=== PATIENT | male | born 1965 | race Caucasian/White ===

== ENCOUNTER 2016-12-13 10:50 | Emergency (ER) | payer OTHER ==
[2016-12-13 10:59] VITALS: TEMP 97.8; BMI 30.8
--- NOTE | 2016-12-13 11:09 | PDOC ---
History of Present Illness <AamirMann - Last Filed: 12/13/16 14:30> - General History Source: Patient, Primary Care Provider (Dr. Ervin Chaves) Exam Limitations: No Limitations <Natalia Schneider - Last Filed: 12/13/16 14:45> - General Chief Complaint: Chest Pain Stated Complaint: CHEST PAIN Time Seen by Provider: 12/13/16 11:09 - History of Present Illness Initial Comments: 12/13/16 11:26 The patient is a 51-year-old man with no past medical history of who presents with mid-sternal chest pain, pressure in character, "feels like a knot in his chest", lasting 30 seconds - 1 minute, nonpleuritic, nonradiating, intermittent , 6/10 in severity, without alleviating/ exacerbating factors, with associated palpitations and generalized weakness for the past 3 days. He has not taken any medications to help with his symptoms. He has never experienced this before. He went to his PMD's office, this morning, for further evaluation of his symptoms, for which he was advised to present to the ED. He denies fever, chills, cough, hemoptysis, diaphoresis, shortness of breath, headache. He denies jaw/ back pain lower extremity pain/swelling, calf tenderness/pain He denies recent travel, recent surgery, recent immobilization. Allergies: No Known Drug Allergies Past Surgical History: None reported Social History: Current everyday cigarette smoker (approximately 10 cigarettes/ day). No EtOH use. Former steroid use. Primary Care Physician: Dr. Jerod Chaves (Natalia Schneider) Past History - Psycho/Social/Smoking Cessation Hx Anxiety: No Suicidal Ideation: No Smoking Status: Yes Smoking History: Current every day smoker Number of Cigarettes Smoked Daily: 20 Information on smoking cessation initiated: No Hx Alcohol Use: No Drug/Substance Use Hx: No Substance Use Type: None <Mann Rutledge - Last Filed: 12/13/16 14:30> <Natalia Schneider - Last Filed: 12/13/16 14:45> - Past Medical History Allergies/Adverse Reactions: Allergies Allergy/AdvReac Type Severity Reaction Status Date / Time No Known Allergies Allergy Verified 12/13/16 10:59 Home Medications: Ambulatory Orders NK [No Known Home Medication] 12/13/16 Review of Systems <Mann Rutledge - Last Filed: 12/13/16 14:30> - Review of Systems Able to Perform ROS?: Yes <Natalia Schneider - Last Filed: 12/13/16 14:45> - Review of Systems Comments:: 12/13/16 11:26 CONSTITUTIONAL: No fever, no chills, no fatigue EYES: No visual changes ENT: No ear pain, no sore throat CARDIOVASCULAR: Yes: Chest Pain. Palpitations. RESPIRATORY: No cough, no SOB GI: No abdominal pain, no nausea, no vomiting, no constipation, no diarrhea GENITOURINARY: No dysuria, no frequency, no hematuria MUSKULOSKELETAL: No back pain, no joint pain, no myalgias SKIN: No rash NEURO: No headache (Natalia Schneider) *Physical Exam <AamirMann - Last Filed: 12/13/16 14:30> <Natalia Schneider - Last Filed: 12/13/16 14:45> - Vital Signs Last Vital Signs Temp Pulse Resp BP Pulse Ox 97.8 F 77 16 129/70 100 12/13/16 10:52 12/13/16 13:05 12/13/16 13:05 12/13/16 13:05 12/13/16 13:05 - Physical Exam Comments: 12/13/16 11:26 CONSTITUTIONAL: Well-appearing; well-nourished; in no apparent distress HEAD: Normocephalic; atraumatic EYES: PERRL; EOM intact ENMT: External appears normal; normal oropharynx NECK: Supple; non-tender; no cervical lymphadenopathy CARD: Normal S1, S2; no murmurs, rubs, or gallops RESP: Normal chest excursion with respiration; breath sounds clear and equal bilaterally; no wheezes, rhonchi, or rales ABD: Soft, non-distended; non-tender; no palpable organomegaly, no palpable hernias EXT: Normal ROM in all four extremities; non-tender to palpation; distal pulses intact SKIN: Warm, dry, no rash NEURO: No focal neurological deficiencies. (Natalia Schneider) Heart Score/ECG Review #1 ECG reviewed & interpreted by me at: 11:00 General ECG Interpretation: Sinus Rhythm (at 79), Normal Rate, Normal Intervals , No acute ischemic changes <Natalia Schneider - Last Filed: 12/13/16 14:45> ED Treatment Course - LABORATORY CBC & Chemistry Diagram: 12/13/16 11:43 12/13/16 11:43 <Mann Rutledge - Last Filed: 12/13/16 14:30> - LABORATORY CBC & Chemistry Diagram: 12/13/16 11:43 12/13/16 11:43 <Fredo Schneiderine - Last Filed: 12/13/16 14:45> - ADDITIONAL ORDERS Additional order review: Laboratory Results 12/13/16 12/13/16 11:43 11:43 INR 1.03 Sodium 138 Potassium 4.9 Chloride 103 Carbon Dioxide 27 Anion Gap 8 BUN 10 Creatinine 1.0 D Creat Clearance w eGFR > 60 Random Glucose 95 Calcium 9.4 Total Bilirubin 0.7 D AST 52 H D ALT 132 H D Alkaline Phosphatase 47 Creatine Kinase 102 Troponin I < 0.02 Total Protein 6.9 Albumin 3.4 12/13/16 11:43 RBC 6.07 H MCV 88.6 MCHC 32.8 RDW 17.3 H D MPV 9.9 Neutrophils % 77.1 Lymphocytes % 13.8 D Monocytes % 7.5 Eosinophils % 0.8 Basophils % 0.8 - RADIOLOGY Radiograph Interpretation: 12/13/16 13:44 EXAM: RAD/CHEST X-RAY PORTABLE Interpreted by Dr. Chemo Anderson IMPRESSION: Comparison study November 18, 2015. No evidence of pneumonia, CHF, pleural effusion or pneumothorax. Unremarkable contour of the cardiomediastinal silhouette. No evidence of bulky hilar adenopathy. EKG leads are noted. 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 (Natalia Schneider) - Medications Given in the ED: ED Medications Discontinued Medications Generic Name Dose Route Start Last Admin Trade Name Freq PRN Reason Stop Dose Admin Aspirin 324 mg 12/13/16 11:26 12/13/16 11:33 Asa - PO 12/13/16 11:27 324 mg ONCE ONE Administration Nitroglycerin 1 inch 12/13/16 11:26 12/13/16 11:33 Nitro-Bid 2% Paste - TD 12/13/16 11:27 1 inch ONCE ONE Administration Medical Decision Making <Mann Rutledge - Last Filed: 12/13/16 14:30> <Natalia Schneider - Last Filed: 12/13/16 14:45> - Medical Decision Making 12/13/16 14:31 Patient is a 51-year-old male who presents to the ER with numerous episodes of substernal chest discomfort that occurred rest and last approximately 30 seconds to minute. The symptoms of the persistent over the past several days. Patient reports feeling lightheaded and dizzy during the onset of pain. In the ER, patient is awake and alert, hemodynamically stable. Serial EKGs shows no evidence of acute ischemia or underlying dysrhythmia. Chest x-ray reveals no evidence of cardiomegaly/effusion/pneumothorax. I suspect acute coronary syndrome. Patient had received aspirin-324 mg by mouth and an inch of transdermal nitroglycerin which has prevented any further episodes of chest discomfort. CBC/CMP/cardiac profile within normal limit. I've advised the patient of the need for admission but he is refusing at this time and wishes to sign AMA. I contacted Dr. Nuno of cardiology and patient will contact the office promptly to arrange an outpatient follow-up. I've advised the patient of the risk associated with undiagnosed coronary artery disease which includes but is not limited to acute myocardial infarction, acute arrhythmia, development of congestive heart failure and even . He is expressed understanding and still wishes to sign out AMA. (Mann Rutledge) 12/13/16 13:[address] Cody Nuno. 12/13/16 13:[address] Cody Nuno 12/13/16 13:[address] Cody Nuno (Natalia Scnheider) *DC/Admit/Observation/Transfer <Aamir,Mann - Last Filed: 12/13/16 14:30> <Natalia Schneider - Last Filed: 12/13/16 14:45> Diagnosis at time of Disposition: Acute coronary syndrome - Discharge Dispostion Disposition: AGAINST MEDICAL ADVICE Condition at time of disposition: Fair - Referrals Referrals: Jerod Chaves MD [Primary Care Provider] - Cody Nuno MD [Staff Physician] - - Patient Instructions Printed Discharge Instructions: DI for Chest Pain Additional Instructions: Your leaving AGAINST MEDICAL ADVICE. You're at risk of heart attack, development of congestive heart failure and even . Follow-up with cardiology promptly. Return immediately for worsening symptoms. - Attestations Scribe Attestion: 12/13/16 11:26 Documentation prepared by Natalia Schneider, acting as medical office technology instructor for Mann Rutledge MD. (Natalia Schneider) Physician Attestion: 12/13/16 14:31 The documentation was prepared by the scribe under my direct supervision. I have reviewed the documentation which correctly represents the findings, medical decision-making and critical action taken by me. (Mann Rutledge)
[2016-12-13] MEDS ORDERED: NITROGLYCERIN 2% OINTMENT - 1GM PACKET TD ONE ×2 (11:26→11:27)
[2016-12-13] MEDS ORDERED: ASPIRIN 81 MG CHEWABLE TABLETS PO ONE (11:26)
[2016-12-13] MEDS ORDERED: ASPIRIN 81 MG CHEWABLE TABLETS ONE (11:26)
[2016-12-13 11:43] VITALS: PULSE 77
[2016-12-13 11:50] LABS: BASOPHIL 0.8 % (0-2.0); EOSINOPHIL 0.8 % (0-4.5); MCH 29.1 pg (25.7-33.7); MCHC 32.8 g/dl (32.0-35.9); MEAN CELL VOLUME 88.6 fl (80-96); MEAN PLT VOLUME 9.9 fl (7.5-11.1); NEUTROPHILS 77.1 % (42.8-82.8); PLATELET COUNT 233 K/MM3 (134-434); RDW 17.3 % (11.9-15.9); WHITE BLOOD COUNT 13.2 K/mm3 (4.0-10.0)
[2016-12-13 12:08] LABS: INR 1.03 (0.82-1.09); PROTHROMBIN TIME (PATIENT) 11.3 SEC (9.98-11.88)
[2016-12-13 12:36] LABS: ALBUMIN 3.4 g/dl (3.4-5.0); ANION GAP 8 (8-16); CALCIUM 9.4 mg/dL (8.5-10.1); CO2 27 mmol/L (21-32); GLUCOSE,RANDOM 95 mg/dL (74-106); SGPT/ALT 132 U/L (12-78)
[2016-12-13 12:39] LABS: BILIRUBIN,TOTAL 0.7 mg/dL (0.2-1.0); COCKROFT - GAULT 136.07; SGOT/AST 52 U/L (15-37); TOT PROT 6.9 g/dl (6.4-8.2)
[2016-12-13 12:41] LABS: ALK PHOS 47 U/L (45-117); TROPONIN I < 0.02 ng/ml (0.00-0.05)
[2016-12-13 13:06] VITALS: BP 129/70
--- NOTE | 2016-12-13 15:49 | EKG ---
Test Reason : Blood Pressure : / mmHG Vent. Rate : 082 BPM Atrial Rate : 082 BPM P-R Int : 182 ms QRS Dur : 088 ms QT Int : 338 ms P-R-T Axes : 053 030 031 degrees QTc Int : 394 ms NORMAL SINUS RHYTHM NONSPECIFIC ST ABNORMALITY ABNORMAL ECG NO PREVIOUS ECGS AVAILABLE Confirmed by MIGUEL ANGEL TORRES MD ([id number]) on 12/13/2016 3:49:16 PM Referred By: Confirmed By:MIGUEL ANGEL TORRES MD
== END 2016-12-13 14:47 | disposition left against medical advice (07) ==
LOC: JER 10:50
DX: I24.9 Acute ischemic heart disease, unspecified (principal)
CPT/HCPCS: 36415; 71010-TC; 80053; 82550; 84484; 85025; 85610; 93005; 93010; 99285-25

== ENCOUNTER 2019-02-25 11:14 | Day surgery (SDC) | payer OTHER | END 2019-02-26 12:49 | disposition home or self-care (01) | LOC: FASU 11:14 → FM/S 18:10 ==